=== PATIENT | female | born 1985 ===

== ENCOUNTER 2020-03-28 19:36 | Emergency (ER) | payer BC, OTHER ==
--- NOTE | 2020-03-28 19:42 | EDM.PDOC ---
ED HPI GENERAL MEDICAL PROBLEM - General Stated Complaint: CHEST PAINS Time Seen by Provider: 03/28/20 19:42 Source of Information: Reports: Patient History Limitations: Reports: No Limitations - History of Present Illness INITIAL COMMENTS - FREE TEXT/NARRATIVE: 35-year-old female who reports onset of sharp sided chest pain on Tuesday that was quite severe. She reports the pain lasted for about 30 minutes and "almost caused me to come to the emergency department". She reports that she has been having chest pains off and on for about the last 2 months but over the past 4 days she has noted the pain has been much worse and more frequent. The pains have been lasting between 30 minutes to an hour. Beginning at approximately 4 PM today, she has developed sharp pain in her left chest that radiates into her left axillary area and is worse with certain movements and when she takes a deep breath. No nausea or vomiting. The pain is better when she is lying back and is worse with movement. She rates the pain as an 8/10. No fevers or chills. No cough. No hemoptysis. She has been eating and drinking normally. There has been no trauma or injury to the area that she is aware of. There are no other associated signs or symptoms. There are no other modifying factors. Onset: Other (As above. 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) Chest Pain Score (Numeric/FACES): 8 - Related Data Allergies Allergy/AdvReac Type Severity Reaction Status Date / Time latex Allergy Other Verified 03/30/16 23:32 pseudoephedrine Allergy Other Verified 03/30/16 23:32 [From Jenny] Home Meds: Home Meds Rivaroxaban [Xarelto] 20 mg PO ACDINNER 03/28/20 [History] Past Medical History Hematologic History: Reports: Anticoagulation Therapy (Currently on Xarelto.), Other (See Below) Other Hematologic History: factor V Leiden - Past Surgical History HEENT Surgical History: Reports: Oral Surgery ([place] teeth extraction), Tonsillectomy Social & Family History - Tobacco Use Smoking Status *Q: Never Smoker - Alcohol Use Alcohol Use History: Yes Alcohol Use Frequency: Weekly (1-2 drinks on weekends.) - Living Situation & Occupation Living situation: Reports: Occupation: Employed (Works at [email or web address]) ED ROS GENERAL - Review of Systems Review Of Systems: See Below Constitutional: Reports: No Symptoms HEENT: Reports: No Symptoms Respiratory: Reports: Pleuritic Chest Pain. Denies: Shortness of Breath Cardiovascular: Reports: Chest Pain. Denies: Dyspnea on Exertion, Edema, Lightheadedness, Palpitations GI/Abdominal: Reports: No Symptoms : Reports: No Symptoms Musculoskeletal: Reports: No Symptoms Skin: Reports: No Symptoms Neurological: Reports: No Symptoms Hematologic/Lymphatic: Reports: Other (On Xarelto.) Immunologic: Reports: No Symptoms ED EXAM, GENERAL - Physical Exam Exam: See Below Exam Limited By: No Limitations General Appearance: Alert, WD/WN, Mild Distress, Other (Nontoxic appearing) Eye Exam: Bilateral Eye: EOMI, Normal Inspection Ears: Normal External Exam, Hearing Grossly Normal Ear Exam: Bilateral Ear: Auricle Normal Nose: Normal Inspection, Normal Mucosa, No Blood Throat/Mouth: Normal Inspection, Normal Lips, Normal Oropharynx, Normal Voice, No Airway Compromise Head: Atraumatic, Normocephalic Neck: Normal Inspection, Supple, Non-Tender, Full Range of Motion Respiratory/Chest: No Respiratory Distress, Lungs Clear, Normal Breath Sounds, No Accessory Muscle Use, Chest Non-Tender Cardiovascular: Normal Peripheral Pulses, Regular Rate, Rhythm, No Murmur Peripheral Pulses: 2+: Radial (L), Radial (R), Dorsalis Pedis (L), Dorsalis Pedis (R) GI/Abdominal: Normal Bowel Sounds, Soft, Non-Tender, No Mass Back Exam: Normal Inspection, Full Range of Motion Extremities: Normal Inspection, Normal Range of Motion, Non-Tender, No Pedal Edema, Normal Capillary Refill Neurological: Alert, Oriented, CN II-XII Intact, Normal Cognition, No Motor/Sensory Deficits Psychiatric: Normal Affect Skin Exam: Warm, Dry, Intact, Normal Color, No Rash Lymphatic: No Adenopathy EKG INTERPRETATION EKG Date: 04/04/20 Time: 19:40 Rhythm: NSR Rate (Beats/Min): 77 Okay: Normal P-Wave: Present QRS: Normal ST-T: Normal QT: Normal Comparison: NA - No Prior EKG EKG Interpretation Comments: Essentially normal EKG Course - Vital Signs Last Recorded V/S: Last Vital Signs Temp 36.8 C 03/28/20 19:51 Pulse 79 03/28/20 22:15 Resp 16 03/28/20 22:15 BP 105/61 03/28/20 22:15 Pulse Ox 100 03/28/20 22:15 - Orders/Labs/Meds Orders: Active Orders 24 hr Category Date Time Status EKG Documentation Completion [RC] ASDIRECTED Care 03/28/20 20:03 Active Ang Chest [CT] Stat Exams 03/28/20 20:19 Taken Chest 1V Frontal [CR] Stat Exams 03/28/20 20:02 Taken Sodium Chloride 0.9% [Saline Flush] Med 03/28/20 20:19 Active 10 ml FLUSH ASDIRECTED PRN Peripheral IV Insertion Adult [OM.PC] Routine Oth 03/28/20 20:19 Ordered EKG 12 Lead [EK] Routine Ther 03/28/20 20:02 Ordered Medication Orders Sodium Chloride (Saline Flush) 10 ml FLUSH ASDIRECTED PRN PRN Reason: Keep Vein Open Last Admin: 03/28/20 20:37 Dose: 10 ml Documented by: KYARA Labs: Laboratory Tests 03/28/20 03/28/20 03/28/20 Range/Units 20:16 20:16 20:16 WBC 5.2 (4.5-12.0) X10-3/uL RBC 4.01 (3.23-5.20) x10(6)uL Hgb 12.5 (11.5-15.5) g/dL Hct 36.6 (30.0-51.3) % MCV 91.1 (80-96) fL MCH 31.1 (27.7-33.6) pg MCHC 34.1 (32.2-35.4) g/dL RDW 12.6 (11.5-15.5) % Plt Count 304 (125-369) X10(3)uL MPV 7.4 (7.4-10.4) fL Neut % (Auto) 62.4 (46-82) % Lymph % (Auto) 28.5 (13-37) % [place] % (Auto) 7.3 (4-12) % Eos % (Auto) 1 (1.0-5.0) % Baso % (Auto) 0 (0-2) % Neut # (Auto) 3.2 (1.6-8.3) # Lymph # (Auto) 1.5 (0.6-5.0) # [place] # (Auto) 0.4 (0.0-1.3) # Eos # (Auto) 0.1 (0.0-0.8) # Baso # (Auto) 0.0 (0.0-0.2) # Sodium 141 (135-145) mmol/L Potassium 3.5 (3.5-5.3) mmol/L Chloride 103 (100-110) mmol/L Carbon Dioxide 26 (21-32) mmol/L BUN 12 (7-18) mg/dL Creatinine 0.9 (0.55-1.02) mg/dL Est Cr Clr Drug Dosing TNP Estimated GFR (MDRD) > 60 (>60) BUN/Creatinine Ratio 13.3 (9-20) Glucose 104 (80-116) mg/dL Calcium 8.1 L (8.6-10.2) mg/dL Total Bilirubin 0.3 (0.1-1.3) mg/dL AST 13 (5-25) IU/L ALT 12 (12-36) U/L Alkaline Phosphatase 46 L (56-112) IU/L Troponin I < 4.0 L (4.0-60.3) pg/mL Total Protein 6.6 (6.0-8.0) g/dL Albumin 3.5 (3.5-5.2) g/dL Globulin 3.1 g/dL Albumin/Globulin Ratio 1.1 Meds: Medications Generic Name Dose Route Start Last Admin Trade Name Freq PRN Reason Stop Dose Admin Sodium Chloride 10 ml 03/28/20 20:19 03/28/20 20:37 Saline Flush FLUSH 10 ml ASDIRECTED PRN Administration Keep Vein Open Discontinued Medications Generic Name Dose Route Start Last Admin Trade Name Freq PRN Reason Stop Dose Admin Sodium Chloride 500 mls @ 999 mls/hr 03/28/20 20:20 03/28/20 20:37 Normal Saline IV 03/28/20 20:50 999 mls/hr .BOLUS ONE Administration Iopamidol 100 ml 03/28/20 20:21 03/28/20 20:35 Isovue-370 (76%) IV 03/28/20 20:22 75 ml . DIRECTED ONE Administration - Radiology Interpretation Free Text/Narrative:: Portable chest x-ray shows no acute disease. CTA of the chest showed an unremarkable chest CT angiogram. Specifically, no pulmonary embolism, aortic dissection or pneumonia. This was per the [facility] radiologist. - Re-Assessments/Exams Free Text/Narrative Re-Assessment/Exam: 03/28/20 20:14: Portable chest x-ray showed no acute disease. With the patient having factor V Leiden and the pleuritic chest pain, she will need to have a CTA of her chest to rule out/rule in PE. I discussed this with the patient and she is in agreement with this plan. Therefore we will proceed with establishing an IV, given the patient IV normal saline 500 mL bolus and then also CTA of the chest. 03/28/20 21:55: Patient remains hemodynamically and respiratory stable. Her troponin was normal. Her EKG was normal. Her blood tests are all reassuring. The CT of her chest showed no acute abnormality and specifically ruled out pulmonary embolism and aortic dissection or any other significant problem. The pain in her chest appears to be musculoskeletal in nothing of a serious nature. I discussed all of this with the patient. I answered her questions. She is stable for discharge and is in agreement with the plan for discharge. Pre cautions and reasons for return to the emergency department were discussed with the patient while she was in the emergency department and were detailed in the patient's discharge instructions. Departure - Departure Time of Disposition: 22:01 Disposition: Home, Self-Care 01 Condition: Good Clinical Impression: Chest pain, musculoskeletal - Discharge Information Instructions: Chest Wall Pain, [id number], Nonspecific Chest Pain, Adult, [id number] Referrals: Fco Raymond MD [Primary Care Provider] - Forms: ED Department Discharge Additional Instructions: Your blood tests were all reassuringly normal. The x-ray of your chest show no evidence of lung collapse. The CAT scan of your chest showed no evidence of blood clots, aortic dissection or any significant lung problem. Your EKG and the heart enzyme test were normal. Your chest pain does not appear to be due to anything of a serious nature. It appears to be related to inflammation in your chest wall. You can take Tylenol 1000 mg by mouth every 6 hours as needed for pain. You should avoid any strenuous use of your arms. Back to the emergency department for trouble breathing, coughing up blood, marked increase in pain, severe weakness or any other concerning sign or symptom. Continue to take your medications as previously prescribed by your physician. Sepsis Event Note (ED) - Focused Exam Vital Signs: Vital Signs Temp Pulse Resp BP Pulse Ox 03/28/20 22:15 79 16 105/61 100 03/28/20 21:56 89 16 103/71 100 03/28/20 20:41 90 16 118/67 100 03/28/20 19:51 36.8 C 96 16 114/84 98 - My Orders Last 24 Hours: My Active Orders 03/28/20 20:02 Chest 1V Frontal [CR] Stat EKG 12 Lead [EK] Routine 03/28/20 20:03 EKG Documentation Completion [RC] ASDIRECTED 03/28/20 20:19 Ang Chest [CT] Stat Sodium Chloride 0.9% [Saline Flush] 10 ml FLUSH ASDIRECTED PRN Peripheral IV Insertion Adult [OM.PC] Routine - Assessment/Plan Last 24 Hours: My Active Orders 03/28/20 20:02 Chest 1V Frontal [CR] Stat EKG 12 Lead [EK] Routine 03/28/20 20:03 EKG Documentation Completion [RC] ASDIRECTED 03/28/20 20:19 Ang Chest [CT] Stat Sodium Chloride 0.9% [Saline Flush] 10 ml FLUSH ASDIRECTED PRN Peripheral IV Insertion Adult [OM.PC] Routine
[2020-03-28] MEDS ORDERED: Sodium Chloride 0.9% 10 ML Syringe FLUSH PRN (20:19)
[2020-03-28] MEDS ORDERED: Sodium Chloride 0.9% 500 ML IV ONE (20:20)
[2020-03-28] MEDS ORDERED: Iopamidol 755 Mg/ML 100 ML Bottle IV ONE (20:21)
[2020-03-28 22:44] VITALS: BP 105/61; PULSE 79
== END 2020-03-28 22:19 | disposition home or self-care (01) ==
LOC: FB.ED 19:36
DX: R07.89 Other chest pain (principal); Z91.040 Latex allergy status; Z88.8 Allergy status to other drugs, medicaments and biological substances; Z79.01 Long term (current) use of anticoagulants
CPT/HCPCS: 36415; 71045; 71275; 80053; 84484; 85025; 93005; 96360; 99285; J7040; Q9967; 93010; 99284